=== PATIENT | male | born 1980 | race Caucasian/White ===

== ENCOUNTER → 2018-08-03 | Outpatient (CLI) | payer MEDICAID ==
--- NOTE | 2018-08-03 11:24 | US ---
EXAMINATION TYPE: US scrotum with doppler. TECHNIQUE: Grayscale and color Doppler Duplex imaging performed of the scrotum. DATE OF EXAM: 08/03/2018 COMPARISON: 07/03/2011 CLINICAL HISTORY: 38-year-old male Groin Pain R10.2. Left testicular discomfort x couple weeks Findings: EXAM MEASUREMENTS: TESTICLES: Right Testicle: 5.2 x 2.7 x 3.0 cm. There is a small area of focal shadowing probably relating to so me nonspecific calcification. No mass is identified. Left Testicle: 4.9 x 2.6 x 3.3 cm Both testicles show normal homogeneous appearance without hyperemia. Satisfactory arterial and venous flow is present bilaterally. EPIDIDYMIS HEAD: Right Epididymis: 1.1 x 1.1 x 1.7 cm Left Epididymis: 0.9 x 1.2 x 1.7 cm Presence of hydroceles: Trace of both sides Presence of varicoceles: no IMPRESSION: Trace hydroceles on both sides. No mass or testicular torsion or evidence for epididymoorchitis.
== END | disposition home or self-care (01) ==
LOC: RADUSWWP 09:34
PROVIDERS: ATTEND Family Medicine
DX: R10.2 Pelvic and perineal pain (principal)
CPT/HCPCS: 76870; 93975

== ENCOUNTER 2018-08-31 16:22 | Emergency (ER) | payer MEDICAID ==
[2018-08-31 16:36] VITALS: BP 155/96; PULSE 61; RESP 18; TEMP 98.1
[2018-08-31] MEDS ORDERED: LIDOCAINE 1% INJ 10MG/ML (20 ML MDV) SQ ONE (18:23)
--- NOTE | 2018-08-31 18:58 | ED ---
General Adult HPI - General Chief complaint: Wound/Laceration Stated complaint: Laceration between toes Time Seen by Provider: 08/31/18 16:50 Source: patient Mode of arrival: ambulatory Limitations: no limitations - History of Present Illness Initial comments: Patient is a 38-year-old male presenting to emergency department with a laceration to his right foot. Patient reports walking muted out when his foot slipped and laceration occurred between the fourth and fifth digits of the right foot. Patient reports the environment was dirty and attempted to clean off his foot. Patient denies taking medication to alleviate the pain. Patient is unaware of his tetanus status. Patient denies possibility of any foreign bodies at the site of injury. Patient denies any numbness or tingling. Patient denies any limitations to range of motion - Related Data Allergies Allergy/AdvReac Type Severity Reaction Status Date / Time Sulfa (Sulfonamide Allergy Unknown Verified 08/31/18 16:31 Antibiotics) Review of Systems ROS Statement: Those systems with pertinent positive or pertinent negative responses have been documented in the HPI. ROS Other: All systems not noted in ROS Statement are negative. Past Medical History Additional Past Medical History / Comment(s): chronic acne History of Any Multi-Drug Resistant Organisms: None Reported Past Surgical History: No Surgical Hx Reported Past Psychological History: No Psychological Hx Reported Smoking Status: Never smoker Past Alcohol Use History: Occasional Past Drug Use History: None Reported General Exam Limitations: no limitations General appearance: alert, in no apparent distress Head exam: Present: atraumatic, normocephalic, normal inspection Eye exam: Present: normal appearance ENT exam: Present: normal exam, TM's normal bilaterally Neck exam: Present: normal inspection Respiratory exam: Present: normal lung sounds bilaterally. Absent: wheezes, rales Cardiovascular Exam: Present: regular rate, normal rhythm, normal heart sounds Extremities exam: Present: normal inspection, full ROM Back exam: Present: normal inspection Neurological exam: Present: alert, oriented X3 Psychiatric exam: Present: normal affect, normal mood Skin exam: Present: warm, normal color Course Vital Signs 08/31/18 16:31 Temperature 98.1 F Pulse Rate 61 Respiratory 18 Rate Blood Pressure 155/96 O2 Sat by Pulse 100 Oximetry Procedures - Laceration Laceration #1 Consent Obtained: verbal consent Indication: laceration Site: foot Size (cm): 2 Description: linear Depth: simple, single layer Anesthetic Used: lidocaine 1% Anesthesia Technique: local infiltration Amount (mls): 10 Pre-repair: irrigated extensively Size of Sutures: 4-0 Number of Sutures: 2 Technique: simple, interrupted Patient Tolerated Procedure: well Medical Decision Making - Medical Decision Making Patient is a 38-year-old male presents emergency Department with a laceration to the foot. Patient was given tetanus prophylaxis. Laceration was repaired with 2 sutures. Patient advised to return to emergency department for suture removal or if symptoms get worse. Patient advised to follow-up with primary care. Case discussed with physician. Disposition Clinical Impression: Laceration Disposition: HOME SELF-CARE Condition: Stable Instructions (If sedation given, give patient instructions): Laceration (DC) Is patient prescribed a controlled substance at d/c from ED?: No Referrals: Saúl Ryan MD [Primary Care Provider] - 1-2 days
[2018-08-31] MEDS ORDERED: DIPH,PERTUS(ACELL)TETVAC-LF 0.5 ML VIAL IM ONE (18:59)
== END 2018-08-31 19:37 | disposition home or self-care (01) ==
LOC: EC 16:22
DX: S91.311A Laceration without foreign body, right foot, initial encounter (principal); Z23 Encounter for immunization; Z88.2 Allergy status to sulfonamides; W45.8XXA Other foreign body or object entering through skin, initial encounter; Y92.828 Other wilderness area as the place of occurrence of the external cause; Y93.01 Activity, walking, marching and hiking
CPT/HCPCS: 90715; 99282; 12001; 90471; J2001

== ENCOUNTER 2021-10-24 21:36 | Emergency (ER) | payer MEDICAID ==
[2021-10-24 21:43] VITALS: RESP 16; TEMP 97.4
--- NOTE | 2021-10-24 22:21 | ED ---
General Adult HPI - General Chief complaint: Weakness Stated complaint: Post-op eye issues Time Seen by Provider: 10/24/21 21:48 Source: patient, family Mode of arrival: ambulatory Limitations: no limitations - History of Present Illness Initial comments: This patient is a 41-year-old man who presents to be evaluated for a number symptoms that started tonight around 7 PM. Patient states that he had been cooking dinner for his children when he noticed that the vision of his left eye seemed changing. He states he noticed that there was yellow outline almost like a halo. The patient states that he also was feeling generalized weakness. He went to lie down, and states that his [id number] measured his blood pressure and heart rate and they were normal. The patient's later prompted him to have evaluation here. On Friday he had been in [place] when he had an episode of chest pain that prompted him to go to the emergency department. Patient reportedly had been found to have an elevated troponin, and therefore had a heart catheterization which she was told was normal, and he was then discharged the following day. The patient denies any chest pain, dyspnea, palpitations, diaphoresis in association with today's symptoms. After his vision had returned to normal he did have the mildest of headaches. He has no symptoms now. Onset/Timin -: hour(s) Severity scale (1-10): 0 Consistency: now resolved Improves with: none Worsens with: none Associated Symptoms: weakness Treatments Prior to Arrival: none - Related Data Previous Rx's Medication Instructions Recorded Cephalexin [Keflex] 500 mg PO Q6HR 3 Days #12 cap 08/31/18 Allergies Allergy/AdvReac Type Severity Reaction Status Date / Time Sulfa (Sulfonamide Allergy Unknown Verified 10/24/21 21:39 Antibiotics) Review of Systems ROS Statement: Those systems with pertinent positive or pertinent negative responses have been documented in the HPI. ROS Other: All systems not noted in ROS Statement are negative. Constitutional: Reports: weakness. Denies: fever, chills Eyes: Reports: vision change. Denies: eye pain, eye discharge Respiratory: Denies: cough, dyspnea Cardiovascular: Denies: chest pain, palpitations, edema Gastrointestinal: Denies: abdominal pain, nausea, vomiting, diarrhea Genitourinary: Denies: dysuria, hematuria Musculoskeletal: Denies: back pain Skin: Denies: rash Neurological: Reports: as per HPI, headache. Denies: weakness, numbness, paresthesias, confusion Psychiatric: Reports: anxiety Past Medical History Additional Past Medical History / Comment(s): chronic acne History of Any Multi-Drug Resistant Organisms: None Reported Past Surgical History: Heart Catheterization Past Psychological History: No Psychological Hx Reported Smoking Status: Never smoker Past Alcohol Use History: Occasional Past Drug Use History: None Reported General Exam Limitations: no limitations General appearance: alert, in no apparent distress Head exam: Present: atraumatic, normocephalic Eye exam: Present: normal appearance, PERRL, EOMI, nystagmus. Absent: scleral icterus, conjunctival injection ENT exam: Present: normal oropharynx Neck exam: Present: normal inspection Respiratory exam: Present: normal lung sounds bilaterally. Absent: respiratory distress, wheezes, rales, rhonchi, stridor Cardiovascular Exam: Present: regular rate, normal rhythm, normal heart sounds. Absent: systolic murmur, diastolic murmur, rubs, gallop GI/Abdominal exam: Present: soft. Absent: distended, tenderness, guarding, rebound, rigid, mass Extremities exam: Present: normal inspection, normal capillary refill. Absent: pedal edema, calf tenderness Back exam: Present: normal inspection Neurological exam: Present: alert Skin exam: Present: warm, dry, intact, normal color. Absent: rash Course Vital Signs 10/24/21 10/24/21 21:40 21:43 Temperature 97.4 F L Pulse Rate 67 Pulse Rate [ 57 L Bilateral Sitting Certified Massage Therapist] Respiratory 16 Rate Blood Pressure 147/91 O2 Sat by Pulse 98 Oximetry EKG Findings - EKG Results: EKG: interpreted by KAY, sinus rhythm (Rate 69 bpm) - Blocks, [place], Hypertrophy, ST Abn: AV and intraventricular conduction: right bundle branch block (fixed/intermittent, complete/incomplete) (Incomplete right bundle branch block) QRS axis and voltage: left axis deviation (-30 to -90) (Borderline left axis) Chamber hypertrophy or enlargement: only voltage criteria for left ventricular hypertrophy Medical Decision Making - Medical Decision Making Patient's 41-year-old man who had visual disturbance and generalized weakness. His symptoms have entirely resolved and he feels well. Reviewed the results of the studies with the patient. He at this point would like to go home. We discussed neurology consultation and at this point he would rather following the clinic, but will return if any symptoms recur or if he has any other changes. I did request records from the outside hospital, but these had not arrived and the patient would rather go and weight. - Lab Data Result diagrams: 10/24/21 22:30 10/24/21 22:30 Lab Results 10/24/21 10/24/21 10/24/21 Range/Units 22:30 22:30 22:30 WBC 5.5 (3.8-10.6) k/uL RBC 4.81 (4.30-5.90) m/uL Hgb 14.6 (13.0-17.5) gm/dL Hct 44.0 (39.0-53.0) % MCV 91.5 (80.0-100.0) fL MCH 30.3 (25.0-35.0) pg MCHC 33.1 (31.0-37.0) g/dL RDW 12.3 (11.5-15.5) % Plt Count 283 (150-450) k/uL MPV 6.9 Neutrophils % 68 % Lymphocytes % 21 % Monocytes % 7 % Eosinophils % 1 % Basophils % 0 % Neutrophils # 3.8 (1.3-7.7) k/uL Lymphocytes # 1.2 (1.0-4.8) k/uL Monocytes # 0.4 (0-1.0) k/uL Eosinophils # 0.0 (0-0.7) k/uL Basophils # 0.0 (0-0.2) k/uL PT 9.9 (9.0-12.0) sec INR 0.9 (<1.2) APTT 22.8 (22.0-30.0) sec Sodium 138 (137-145) mmol/L Potassium 3.9 (3.5-5.1) mmol/L Chloride 102 (98-107) mmol/L Carbon Dioxide 28 (22-30) mmol/L Anion Gap 8 mmol/L BUN 18 (9-20) mg/dL Creatinine 1.00 (0.66-1.25) mg/dL Est GFR (CKD-EPI)AfAm >90 (>60 ml/min/1.73 sqM) Est GFR (CKD-EPI)NonAf >90 (>60 ml/min/1.73 sqM) Glucose 105 H (74-99) mg/dL Calcium 9.4 (8.4-10.2) mg/dL Magnesium 1.9 (1.6-2.3) mg/dL Total Bilirubin 0.4 (0.2-1.3) mg/dL AST 63 H (17-59) U/L ALT 63 H (4-49) U/L Alkaline Phosphatase 71 (38-126) U/L Troponin I (0.000-0.034) ng/mL Total Protein 6.7 (6.3-8.2) g/dL Albumin 4.4 (3.5-5.0) g/dL 10/24/21 Range/Units 22:30 WBC (3.8-10.6) k/uL RBC (4.30-5.90) m/uL Hgb (13.0-17.5) gm/dL Hct (39.0-53.0) % MCV (80.0-100.0) fL MCH (25.0-35.0) pg MCHC (31.0-37.0) g/dL RDW (11.5-15.5) % Plt Count (150-450) k/uL MPV Neutrophils % % Lymphocytes % % Monocytes % % Eosinophils % % Basophils % % Neutrophils # (1.3-7.7) k/uL Lymphocytes # (1.0-4.8) k/uL Monocytes # (0-1.0) k/uL Eosinophils # (0-0.7) k/uL Basophils # (0-0.2) k/uL PT (9.0-12.0) sec INR (<1.2) APTT (22.0-30.0) sec Sodium (137-145) mmol/L Potassium (3.5-5.1) mmol/L Chloride (98-107) mmol/L Carbon Dioxide (22-30) mmol/L Anion Gap mmol/L BUN (9-20) mg/dL Creatinine (0.66-1.25) mg/dL Est GFR (CKD-EPI)AfAm (>60 ml/min/1.73 sqM) Est GFR (CKD-EPI)NonAf (>60 ml/min/1.73 sqM) Glucose (74-99) mg/dL Calcium (8.4-10.2) mg/dL Magnesium (1.6-2.3) mg/dL Total Bilirubin (0.2-1.3) mg/dL AST (17-59) U/L ALT (4-49) U/L Alkaline Phosphatase (38-126) U/L Troponin I <0.012 (0.000-0.034) ng/mL Total Protein (6.3-8.2) g/dL Albumin (3.5-5.0) g/dL Disposition Clinical Impression: Visual disturbance Disposition: HOME SELF-CARE Condition: Good Instructions (If sedation given, give patient instructions): Ocular Migraine (ED) Is patient prescribed a controlled substance at d/c from ED?: No Referrals: Saúl Ryan MD [Primary Care Provider] - 1-2 days Jean-Paul Jane MD [STAFF PHYSICIAN] - 1-2 days
[2021-10-24 22:42] LABS: Basophils % (A) 0 %; Eosinophils % (A) 1 %; HGB 14.6 gm/dL (13.0-17.5); Lymphocytes # (A) 1.2 k/uL (1.0-4.8); Lymphocytes % (A) 21 %; MCH 30.3 pg (25.0-35.0); MCHC 33.1 g/dL (31.0-37.0); MCV 91.5 fL (80.0-100.0); Mean Platelet Volume 6.9; Monocytes # (A) 0.4 k/uL (0-1.0); Monocytes % (A) 7 %; Neutrophils # (A) 3.8 k/uL (1.3-7.7); Neutrophils % (A) 68 %; Platelet Count 283 k/uL (150-450); RBC 4.81 m/uL (4.30-5.90); RDW 12.3 % (11.5-15.5); WBC 5.5 k/uL (3.8-10.6)
[2021-10-24 22:53] LABS: ALT 63 U/L (4-49); AST 63 U/L (17-59); African American GFR (CKD) >90 (>60 ml/min/1.73 sqM); Albumin 4.4 g/dL (3.5-5.0); Alkaline Phosphatase 71 U/L (38-126); Anion Gap 8 mmol/L; Blood Urea Nitrogen 18 mg/dL (9-20); Calcium 9.4 mg/dL (8.4-10.2); Carbon Dioxide 28 mmol/L (22-30); Chloride 102 mmol/L (98-107); Glucose 105 mg/dL (74-99); Magnesium 1.9 mg/dL (1.6-2.3); Non-African American GFR(CKD) >90 (>60 ml/min/1.73 sqM); Potassium 3.9 mmol/L (3.5-5.1); Sodium 138 mmol/L (137-145); Total Bilirubin 0.4 mg/dL (0.2-1.3); Total Protein 6.7 g/dL (6.3-8.2)
[2021-10-24 22:55] LABS: INR 0.9 (<1.2); Partial Thromboplastin Time 22.8 sec (22.0-30.0); Prothrombin Time 9.9 sec (9.0-12.0)
--- NOTE | 2021-10-24 23:17 | XR ---
EXAMINATION TYPE: XR chest 2V DATE OF EXAM: 10/24/2021 COMPARISON: NONE HISTORY: Chest pain TECHNIQUE: 2 views FINDINGS: Heart and mediastinum are normal. Lungs are clear. Diaphragm is normal. Bony thorax is inta ct. IMPRESSION: Normal chest.
[2021-10-25 01:06] VITALS: BP 145/101; PULSE 63
== END 2021-10-25 01:06 | disposition home or self-care (01) ==
LOC: EC 21:36
DX: H53.9 Unspecified visual disturbance (principal); Z88.2 Allergy status to sulfonamides
CPT/HCPCS: 36415; 71046; 80053; 83735; 84484; 85025; 85610; 85730; 93005; 99285

== ENCOUNTER → 2022-03-07 | Outpatient (CLI) | payer MEDICAID ==
--- NOTE | 2022-03-07 08:33 | CT ---
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 CONTRAST: CT scan of the chest is performed with IV Contrast, patient injected with 70 mL of Isovue 300. FINDINGS: LUNGS: The lungs are grossly clear, there is no concerning parenchymal mass or nodule identified. T here is no pleural effusion or pneumothorax seen. The tracheobronchial tree is patent. MEDIASTINUM: There are no greater than 1 cm hilar or mediastinal lymph nodes. No pericardial effusi on is seen. Thoracic aorta is of normal caliber. The heart is mildly enlarged. UPPER ABDOMEN: No significant abnormality appreciated. OTHER: No additional significant abnormality is seen. IMPRESSION: 1. Mild cardiomegaly. Otherwise unremarkable study.
== END | disposition home or self-care (01) ==
LOC: RADCTMAIN 07:59
PROVIDERS: ATTEND Internal Medicine Critical Care Medicine
DX: D86.9 Sarcoidosis, unspecified (principal); I51.7 Cardiomegaly
CPT/HCPCS: 71260; Q9967

== ENCOUNTER → 2022-03-13 | Outpatient (CLI) | payer MEDICAID ==
[2022-03-13 19:15] LABS: Bilirubin, Conjugated <0.20 mg/dL (0.20-0.40); Creatine Kinase 101 U/L (35-257)
[2022-03-13 19:16] LABS: ALT 32 U/L (10-49); AST 26 U/L (14-35); Albumin 4.9 g/dL (3.8-4.9); Albumin/Globulin Ratio 2.51 (1.60-3.17); Alkaline Phosphatase 57 U/L (41-126); Total Protein 6.8 g/dL (6.2-8.2)
== END | disposition home or self-care (01) ==
LOC: LABWHC1 11:10
PROVIDERS: ATTEND Internal Medicine Critical Care Medicine
DX: R07.89 Other chest pain (principal)
CPT/HCPCS: 36415; 80076; 82164; 82248; 82550

== ENCOUNTER → 2023-12-10 | Outpatient (CLI) | payer MEDICAID ==
--- NOTE | 2023-12-11 11:00 | CA ---
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 67 - 155 / 56 - 104 cm??? LV Systolic Volume MOD BP 68.0 cm??? 22 - 58 / 19 - 49 cm??? LV Ejection Fraction MOD BP 57.4 % >= 55 % LV Cardiac Index MOD BP 2889.9 cm???/min???m??? LV Diastolic Volume MOD 4C 162.6 cm??? LV Systolic Volume MOD 4C 67.9 cm??? LV Ejection Fraction MOD 4C 58.3 % LV Cardiac Index MOD 4C 2991.6 cm???/min???m??? LV Diastolic Length 4C 9.2 cm LV Systolic Length 4C 7.5 cm LV Diastolic Volume MOD 2C 155.9 cm??? LV Systolic Volume MOD 2C 67.6 cm??? LV Ejection Fraction MOD 2C 56.6 % LV Cardiac Index MOD 2C 2786.6 cm???/min???m??? LV Diastolic Length 2C 9.1 cm LV Systolic Length 2C 7.4 cm LA Volume 60.9 cm??? 18 - 58 / 22 - 52 cm??? LA Volume Index 30.5 cm???/m??? 16 - 28 cm???/m??? Ascending Aorta Diameter 3.1 cm DOPPLER AV Peak Velocity 123.7 cm/s AV Peak Gradient 6.1 mmHg AV Mean Velocity 92.8 cm/s AV Mean Gradient 3.6 mmHg AV Velocity Time Integral 28.0 cm LVOT Peak Velocity 97.3 cm/s LVOT Peak Gradient 3.8 mmHg LVOT Velocity Time Integral 20.4 cm LVOT Stroke Volume 98.2 cm??? LVOT Stroke Volume Index 50.3 ml/m??? LVOT Cardiac Index 3100.9 cm???/min???m??? AV Area Cont Eq vti 3.5 cm??? AV Area Cont Eq pk 3.8 cm??? MV Area PHT 5.1 cm??? Mitral E Point Velocity 63.1 cm/s Mitral A Point Velocity 59.9 cm/s Mitral E to A Ratio 1.1 MV Deceleration Time 149.8 ms TR Peak Velocity 218.6 cm/s TR Peak Gradient 19.1 mmHg Right Atrial Pressure 5.0 mmHg Pulmonary Artery Systolic Pressu 24.1 mmHg Right Ventricular Systolic Press 24.1 mmHg PV Peak Velocity 118.9 cm/s PV Peak Gradient 5.7 mmHg FINDINGS Left Ventricle Left ventricular ejection fraction is estimated at 55-60 %. Mildly increased left ventricular diastolic volume. Mildly increased left ventricular systolic volume. No obvious regional wall motion abnormalities. . Right Ventricle Mild right ventricular dilatation with normal function. Right ventricular systolic pressure within normal limits. Right Atrium Normal right atrial size. Left Atrium Mildly increased left atrial volume. Mitral Valve Mitral valve thickened. No evidence for mitral valve prolapse. No mitral stenosis. Mild mitral regurgitation. Aortic Valve Trileaflet aortic valve. No aortic valve stenosis or regurgitation. Tricuspid Valve Structurally normal tricuspid valve. No tricuspid stenosis. Mild tricuspid regurgitation. Pulmonic Valve Structurally normal pulmonic valve. No pulmonic stenosis. Trace pulmonic regurgitation. Pericardium No pericardial effusion. Aorta Normal size aortic root and proximal ascending aorta. CONCLUSIONS Normal LV size and systolic function. Mild mitral and tricuspid regurgitation. No pericardial effusion. No pulmonary hypertension Previewed by: Dr. Monico Mandujano MD (Electronically Signed) Final Date: 11 December 2023 10:59
== END | disposition home or self-care (01) ==
LOC: RADECHMAIN 08:02
PROVIDERS: ATTEND Internal Medicine Interventional Cardiology
DX: D86.85 Sarcoid myocarditis
CPT/HCPCS: 93270; 93306

== ENCOUNTER 2024-07-20 07:12 | Day surgery (SDC) | payer MEDICAID ==
[2024-07-16 15:00] VITALS: BMI 27.3
[2024-07-20 07:33] VITALS: TEMP 97.4
[2024-07-20] MEDS ORDERED: LIDOCAINE 1% (10MG/ML) FOR IV START INTRADERMA PRN (07:36)
[2024-07-20] MEDS ORDERED: LACTATED RINGERS 1,000 ML IV SCH (07:36)
[2024-07-20] MEDS: LACTATED RINGERS 1,000 ML BAG IV STA (07:37)
[2024-07-20] MEDS: IV FLUID CONTINUATION 1,000 ML IV ONE (07:37)
[2024-07-20] MEDS ORDERED: PROPOFOL 10 MG/ML 20 ML VIAL IV ONE (07:58)
--- NOTE | 2024-07-20 08:03 | P.GSHP ---
History of Present Illness H&P Date: 07/20/24 Chief Complaint: Colon cancer screening 44-year-old male here today for colonoscopy. He has not had 1 previously. No bowel complaints. No family history of colon cancer. Past Medical History Additional Past Medical History / Comment(s): chronic acne History of Any Multi-Drug Resistant Organisms: None Reported Past Surgical History: Heart Catheterization Additional Past Surgical History / Comment(s): Lasik surgery B/L eyes. Past Anesthesia/Blood Transfusion Reactions: No Reported Reaction Additional Past Anesthesia/Blood Transfusion Reaction / Comment(s): No hx of blood transfusion Smoking Status: Never smoker - Past Family History Mother Family Medical History: No Reported History Medications and Allergies Home Medications Medication Instructions Recorded Confirmed Type ALPRAZolam [Xanax] 0.5 tab PO DIRECTED PRN 07/16/24 07/20/24 History Doxycycline [Vibramycin] 25 mg PO DAILY 07/16/24 07/20/24 History Allergies Allergy/AdvReac Type Severity Reaction Status Date / Time Sulfa (Sulfonamide Allergy Rash/Hives Verified 07/16/24 14:53 Antibiotics) Surgical - Exam Vital Signs Temp Pulse Resp BP Pulse Ox 97.4 F L 65 16 147/94 99 07/20/24 07:31 07/20/24 07:31 07/20/24 07:31 07/20/24 07:31 07/20/24 07:31 Physical exam: General: Well-developed, well-nourished HEENT: Normocephalic, sclerae nonicteric Abdomen: Nontender, nondistended Extremities: No edema Neuro: Alert and oriented Assessment and Plan (1) Colon cancer screening Narrative/Plan: Will proceed with colonoscopy at this time. Current Visit: Yes Status: Acute Code(s): Z12.11 - ENCOUNTER FOR SCREENING FOR MALIGNANT NEOPLASM OF COLON SNOMED Code(s): 851060456
--- NOTE | 2024-07-20 08:15 | P.PCN ---
Date of Procedure: 07/20/24 Procedure(s) Performed: PREOPERATIVE DIAGNOSIS: Colon cancer screening POSTOPERATIVE DIAGNOSIS: Minimal diverticulosis PROCEDURE: Colonoscopy ANESTHESIA: MAC SURGEON: Jem Geiger M.D. SPECIMENS: None ENDOSCOPIC PROCEDURE: The patient was placed on the endoscopy table in the left decubitus position. The Olympus colonoscope was inserted into the anus and passed under direct visualization to the base of the cecum. The appendiceal orifice was visualized. From that point the scope was slowly withdrawn inspecting all surfaces carefully. There were no neoplastic inflammatory or polypoid lesions throughout the cecum, ascending, transverse, descending, sigmoid and rectum. There was minimal left-sided diverticulosis noted. Digital rectal examination was normal. The patient was taken to the recovery room in stable condition per anesthesia guidelines. RECOMMENDATIONS: Resume diet. Repeat colonoscopy 10 years.
[2024-07-20 08:34] VITALS: BP 104/72; PULSE 57; RESP 18
== END 2024-07-20 08:51 | disposition home or self-care (01) ==
LOC: ORWHC2ENDO 07:12
PROVIDERS: ATTEND Surgery
DX: Z12.11 Encounter for screening for malignant neoplasm of colon (principal); K57.30 Diverticulosis of large intestine without perforation or abscess without bleeding; K21.9 Gastro-esophageal reflux disease without esophagitis; F41.9 Anxiety disorder, unspecified; L70.9 Acne, unspecified; Z79.899 Other long term (current) drug therapy; Z79.2 Long term (current) use of antibiotics; Z88.2 Allergy status to sulfonamides
CPT/HCPCS: 45378; J2704